=== PATIENT | female | born 1980 ===

== ENCOUNTER 2018-08-13 05:38 | Emergency (ER) | payer OTHER ==
[2018-08-13 06:12] LABS: Basophils % (Auto) 0.1 % (0.0-1.8); Eosinophils # (Auto) 0.2 K/mm3 (0.0-0.4); Eosinophils % (Auto) 0.9 % (0.0-4.3); Hematocrit 37.1 % (30.3-42.9); Hemoglobin 12.2 gm/dl (10.1-14.3); Lymphocytes # (Auto) 2.6 K/mm3 (1.2-5.4); Mean Corpuscular HGB Conc 33 % (30-34); Mean Corpuscular Volume 88 fl (79-97); Monocytes # (Auto) 1.2 K/mm3 (0.0-0.8); Platelet Count 348 K/mm3 (140-440); Red Blood Count 4.22 M/mm3 (3.65-5.03); Red Cell Distribution Width 16.1 % (13.2-15.2)
[2018-08-13 06:19] LABS: Bilirubin,Urine NEG (Negative); Blood,Urine NEG (Negative); Color,Urine Yellow (Yellow); Mucus,Urine 2+ /HPF; Protein,Urine <15 mg/dL mg/dL (Negative); Urobilinogen,Urine < 2.0 mg/dL (<2.0)
--- NOTE | 2018-08-13 08:37 | Ultrasound Report ---
ULTRASOUND OB LESS THAN 14 WEEKS FETUS ULTRASOUND OB TRANSVAGINAL History: Vaginal bleeding and . Findings: Transabdominal and transvaginal ultrasound imaging was performed. The uterus measures 12 x 8 x 8 cm. No obvious uterine fibroids. An intrauterine gestational sac is identified containing pole and yolk sac. heart rate measures 116 beats per minute. [place]-rump length measures 3.1 mm which correlates with a 5 week 6 day . A small subchorionic hemorrhage is identified along the inferior border of the gestational sac. The ovaries are normal size, contour and echotexture. No adnexal cyst or mass. No pelvic fluid collection. Nabothian cyst in the cervix measuring up to 1.5 cm. IMPRESSION: Viable, single intrauterine as described above. Small subchorionic hemorrhage. Nabothian cysts in the cervix.
--- NOTE | 2018-08-13 08:37 | Ultrasound Report ---
ULTRASOUND OB LESS THAN 14 WEEKS FETUS ULTRASOUND OB TRANSVAGINAL History: Vaginal bleeding and . Findings: Transabdominal and transvaginal ultrasound imaging was performed. The uterus measures 12 x 8 x 8 cm. No obvious uterine fibroids. An intrauterine gestational sac is identified containing pole and yolk sac. heart rate measures 116 beats per minute. [place]-rump length measures 3.1 mm which correlates with a 5 week 6 day . A small subchorionic hemorrhage is identified along the inferior border of the gestational sac. The ovaries are normal size, contour and echotexture. No adnexal cyst or mass. No pelvic fluid collection. Nabothian cyst in the cervix measuring up to 1.5 cm. IMPRESSION: Viable, single intrauterine as described above. Small subchorionic hemorrhage. Nabothian cysts in the cervix.
--- NOTE | 2018-08-13 08:59 | Emergency Department Report ---
ED HPI - General Chief complaint: Vaginal Bleeding Stated complaint: ABDOMINAL PAIN/6WKS PREG VIA IVF Time Seen by Provider: 08/13/18 08:24 Source: patient Mode of arrival: Ambulatory Limitations: No Limitations - History of Present Illness Initial comments: ELSIE is a very pleasant 38-year-old female who comes to the ER today complaining of vaginal bleeding during . Patient states that she has recently underwent in vitro fertilization and had a positive . She woke up this morning with acute onset of bright red vaginal blood. She is ambulatory and nontoxic. Gravida6 p4 miscarriage of twins 1 EDC 11 - Related Data Allergies Allergy/AdvReac Type Severity Reaction Status Date / Time No Known Allergies Allergy Verified 08/13/18 05:45 ED Review of Systems ROS: Stated complaint: ABDOMINAL PAIN/6WKS PREG VIA IVF Other details as noted in HPI Comment: All other systems reviewed and negative Constitutional: denies: chills Eyes: denies: eye pain ENT: denies: ear pain Respiratory: denies: cough Cardiovascular: denies: dyspnea on exertion Endocrine: denies: flushing Gastrointestinal: as per HPI. denies: nausea Genitourinary: as per HPI, other (VAG BLEED IN PREG) Musculoskeletal: as per HPI. denies: back pain Skin: denies: rash Neurological: denies: headache ED Past Medical Hx - Past Medical History Previous Medical History?: No - Surgical History Past Surgical History?: Yes Additional Surgical History: tubal ligation. tubal reversal. 2 egg retrivals. - Family History Family history: no significant - Social History Smoking Status: Never Smoker Substance Use Type: None ED Physical Exam - General Limitations: No Limitations General appearance: alert - Head Head exam: Present: atraumatic - Eye Eye exam: Present: normal appearance, PERRL - ENT ENT exam: Present: normal exam - Neck Neck exam: Present: normal inspection - Respiratory Respiratory exam: Present: normal lung sounds bilaterally - Cardiovascular Cardiovascular Exam: Present: regular rate - GI/Abdominal GI/Abdominal exam: Present: soft, normal bowel sounds - Rectal Rectal exam: Present: deferred - Extremities Exam Extremities exam: Present: normal inspection, full ROM - Back Exam Back exam: Present: normal inspection, full ROM - Neurological Exam Neurological exam: Present: alert, oriented X3 - Psychiatric Psychiatric exam: Present: normal affect, normal mood - Skin Skin exam: Present: warm, dry, intact ED Course Vital Signs 08/13/18 08/13/18 05:40 05:41 Temperature 98.7 F 98.7 F Pulse Rate 106 H 101 H Respiratory 20 18 Rate Blood Pressure 138/94 138/94 O2 Sat by Pulse 99 99 Oximetry ED Medical Decision Making - Lab Data Result diagrams: 08/13/18 05:54 - Radiology Data Radiology results: report reviewed, image reviewed IUP HR 116 SUBCHOR HEM - Medical Decision Making DISCUSSED US WITH PT- IMAGES TO DISC HR 116 SUBCHOR HEM HCG NOTED RH POS PT BEING DC HOME WITH PELVIC REST SHE IS TO SEE PERINAT. NO WORK UNTIL FOLLOW UP WITH [facility]IN[facility]. PT IS A NURSE WORKING 2 JOBS Labs 08/13/18 08/13/18 08/13/18 05:54 05:54 07:37 WBC 17.1 H RBC 4.22 Hgb 12.2 Hct 37.1 MCV 88 MCH 29 MCHC 33 RDW 16.1 H Plt Count 348 Lymph % (Auto) 15.0 Stewart % (Auto) 7.0 Eos % (Auto) 0.9 Baso % (Auto) 0.1 Lymph # 2.6 Stewart # 1.2 H Eos # 0.2 Baso # 0.0 Seg Neutrophils % 77.0 H Seg Neutrophils # 13.2 H HCG, Quant 08957 H Urine Color Urine Turbidity Urine pH Ur Specific Parks Urine Protein Urine Glucose (UA) Urine Ketones Urine Blood Urine Nitrite Urine Bilirubin Urine Urobilinogen Ur Leukocyte Esterase Urine WBC (Auto) Urine RBC (Auto) U Epithel Cells (Auto) Urine Mucus Blood Type O POSITIVE 08/13/18 Unknown WBC RBC Hgb Hct MCV MCH MCHC RDW Plt Count Lymph % (Auto) Stewart % (Auto) Eos % (Auto) Baso % (Auto) Lymph # Stewart # Eos # Baso # Seg Neutrophils % Seg Neutrophils # HCG, Quant Urine Color Yellow Urine Turbidity Clear Urine pH 5.0 Ur Specific Parks 1.038 H Urine Protein <15 mg/dl Urine Glucose (UA) Neg Urine Ketones Neg Urine Blood Neg Urine Nitrite Neg Urine Bilirubin Neg Urine Urobilinogen < 2.0 Ur Leukocyte Esterase Neg Urine WBC (Auto) 3.0 Urine RBC (Auto) 5.0 U Epithel Cells (Auto) 4.0 Urine Mucus 2+ Blood Type Vital Signs 08/13/18 08/13/18 05:40 05:41 Temperature 98.7 F 98.7 F Pulse Rate 106 H 101 H Respiratory 20 18 Rate Blood Pressure 138/94 138/94 O2 Sat by Pulse 99 99 Oximetry Critical care attestation.: If time is entered above; I have spent that time in minutes in the direct care of this critically ill patient, excluding procedure time. ED Disposition Clinical Impression: , Subchorionic hemorrhage Disposition: - TO HOME OR SELFCARE Is pt being admited?: No Does the pt Need Aspirin: No Condition: Stable Additional Instructions: FOLLOW UP WITH YOUR MD WE DISCUSSED PELVIC REST BLOOD RH POS H/H [facility] [id number] US/TRANSVAG ON DISC RETURN TO WORK PER SPECIALIST Referrals: DAVIDE FRAZIER [Other] - 3-5 Days Forms: Work/School Release Form(ED) Time of Disposition: 09:17
[2018-08-13 10:54] VITALS: BP 133/74
== END 2018-08-13 10:51 | disposition home or self-care (01) ==
LOC: ED 05:38
DX: O20.9 Hemorrhage in early pregnancy, unspecified (principal); Z98.51 Tubal ligation status; Z3A.01 Less than 8 weeks gestation of pregnancy
CPT/HCPCS: 36415; 76801; 76817; 81001; 84702; 85025; 86900; 86901